=== PATIENT | female | born 1955 | race African-American/Black ===

== ENCOUNTER 2020-01-20 06:02 | Inpatient (IN) ==
[~2020-01-20 06:02] MED LIST: ALVIMOPAN 12 MG CAPSULE ONE; cefTRIAXone 1,000 MG VIAL ONE
[2020-01-20] MEDS ORDERED: DIAZEPAM 5 MG TABLET PO ONE (06:18)
[2020-01-20] MEDS ORDERED: DIAZEPAM 5 MG TABLET ONE (06:25)
[2020-01-20] MEDS ORDERED: ALVIMOPAN 12 MG CAPSULE PO STA (06:33)
[2020-01-20] MEDS ORDERED: MANNITOL 12.5 GM/50 ML VIAL IV ONE (06:40)
[2020-01-20] MEDS: LACTATED RINGERS 1,000 ML IV SCH ×3 (06:42→11:00)
[2020-01-20] MEDS ORDERED: INDOCYANINE GREEN 25 MG VIAL IV ONE (08:43)
[2020-01-20 11:13] LABS: Apearance,Urine CLOUDY (Clear); Bacteria,Urine Occasional /HPF (Few); Bilirubin,Urine Negative (Negative); Blood, Urine Negative (Negative); Calcium Oxalate Crystals,Urine Moderate /HPF (Few); Glucose,Urine (UA) Negative (Negative); Hyaline Casts,Urine 9 /LPF (0-3); Ketones,Urine Negative (Negative); Mucus,Urine Occasional /LPF (Occasional); Nitrite,Urine Negative (Negative); Protein,Urine Negative; RBC,Urine 1 /HPF (0-4); Squamous Epithelial Cell,Urine Occasional /HPF (0-10); Urine Color Yellow (Yellow); Urine Specific Gravity 1.015 (1.001-1.035); Urine Urobilinogen < 2.0 EU/DL (0.2-1.0); WBC,Urine 1 /HPF (0-6)
[2020-01-20] MEDS ORDERED: GLUCAGON 1 MG VIAL IM PRN (11:15)
[2020-01-20] MEDS ORDERED: NALOXONE 0.4 MG/ML VIAL IV PRN (11:15)
[2020-01-20] MEDS ORDERED: diphenhydrAMINE 50 MG/1 ML VIAL IV PRN (11:15)
[2020-01-20] MEDS ORDERED: ONDANSETRON 4 MG/2 ML VIAL IV PRN (11:15)
[2020-01-20] MEDS ORDERED: DEXTROSE 50% 25 GM/50 ML VIAL IV PRN (11:15)
[2020-01-20] MEDS ORDERED: HYDROmorphone PCA 30 MG/30 ML SYRINGE IV SCH (11:30)
[2020-01-20] MEDS ORDERED: propofoL 200 MG/20 ML VIAL IV ONE (11:51)
[2020-01-20] MEDS ORDERED: LIDOCAINE 2% 5 ML VIAL ONE (11:51)
[2020-01-20] MEDS ORDERED: MIDAZOLAM 2 MG/2 ML VIAL ONE (11:52)
[2020-01-20] MEDS ORDERED: fentaNYL 100 MCG/2 ML VIAL ONE (11:52)
[2020-01-20] MEDS ORDERED: HYDROmorphone 2 MG/1 ML VIAL ONE (11:53)
[2020-01-20] MEDS ORDERED: PHENYLEPHRINE 1 MG/10 ML SYRINGE IV ONE (11:53)
[2020-01-20] MEDS ORDERED: PHENYLEPHRINE 10 MG/1 ML VIAL IV ONE (11:53)
[2020-01-20] MEDS ORDERED: ROCURONIUM 100 MG/10 ML VIAL IV ONE (11:53)
[2020-01-20] MEDS ORDERED: ONDANSETRON 4 MG/2 ML VIAL ONE (11:55)
[2020-01-20] MEDS ORDERED: GLYCOPYRROLATE 0.4 MG/2 ML VIAL ONE (11:55)
[2020-01-20] MEDS ORDERED: LACTATED RINGERS 2,000 ML IV ONE (11:55)
[2020-01-20] MEDS ORDERED: SEVOFLURANE 1 UNIT/15 MINUTE INH ONE (11:55)
[2020-01-20] MEDS ORDERED: NEOSTIGMINE 10 MG/10 ML VIAL ONE (11:55)
[2020-01-20] MEDS ORDERED: ePHEDrine 50 MG/ML AMP ONE (11:55)
[2020-01-20] MEDS ORDERED: SODIUM CHLORIDE 0.9% 200 ML IV ONE (11:55)
[2020-01-20] MEDS ORDERED: HYDROmorphone PCA 30 MG/30 ML SYRINGE IV ONE (11:58)
[2020-01-20] MEDS: SODIUM CHLORIDE 0.9% 1,000 ML IV SCH (13:00)
[2020-01-20] MEDS ORDERED: LIDOCAINE 5% PATCH TRANSDERM PRN (17:32)
[2020-01-20] MEDS ORDERED: BUDESONIDE/FORMOTEROL 160-4.5 INHALER 6 GM INH PRN (17:32)
[2020-01-20] MEDS ORDERED: ALBUTEROL/IPRATROPIUM 3 ML NEB RESP TX PRN (17:32)
[2020-01-20] MEDS ORDERED: FUROSEMIDE 20 MG TABLET PO PRN (17:32)
[2020-01-20] MEDS ORDERED: CYCLOBENZAPRINE 10 MG TABLET PO PRN (17:32)
[2020-01-20] MEDS: carvediloL 25 MG TABLET PO SCH (21:33)
[2020-01-20] MEDS: GABAPENTIN 600 MG TABLET PO SCH (21:34)
[2020-01-20] MEDS: ALVIMOPAN 12 MG CAPSULE PO SCH (21:35)
[2020-01-20] MEDS: METOCLOPRAMIDE 5 MG TABLET PO SCH (21:36)
[2020-01-21] MEDS: SODIUM CHLORIDE 0.9% 1,000 ML IV SCH (05:01)
[2020-01-21 05:26] LABS: Basophils % 0.3 % (0.0-0.8); Eosinophils # 0.2 10*3/uL (0.0-0.87); Eosinophils % 1.7 % (0.00-10.9); Hemoglobin 10.5 GM/DL (12.0-16.0); Immature Granulocytes % 0.4 %; Immature Granulocytes Absolute 0.04 #; Lymphocytes # 2.7 10*3/uL (1.4-4.0); Lymphocytes % 26.4 % (21.3-54.2); Mean Corpuscular HGB Conc 31.8 GM/DL (32-36); Mean Corpuscular Volume 97.1 FL (87-102); Mean Platelet Volume 9.2 FL (9.6-12.0); Monocytes % 8.3 % (1.7-12.7); Neutrophils % 62.9 % (38.7-73.9); Platelet Count 188 T/CUMM (130-400); Red Cell Distribution Width 13.6 % (9.3-17.3); White Blood Count 10.3 T/CUMM (4-12)
[2020-01-21] MEDS: LACTATED RINGERS 1,000 ML IV SCH (05:35)
[2020-01-21 06:06] LABS: Hypochromasia Slight; Microcytosis Slight; Ovalocytes Slight; Platelet Estimate Adequate
[2020-01-21 06:10] LABS: Calcium 8.3 MG/DL (8.5-10.1)
[2020-01-21] MEDS: MULTIVITAMIN (CENTRUM) TABLET PO SCH (08:28)
[2020-01-21] MEDS: carvediloL 25 MG TABLET PO SCH ×2 (08:28→21:44)
[2020-01-21] MEDS: GABAPENTIN 600 MG TABLET PO SCH ×4 (08:29→21:44)
[2020-01-21] MEDS: ALVIMOPAN 12 MG CAPSULE PO SCH ×2 (08:29→21:45)
[2020-01-21] MEDS: LOSARTAN 50 MG TABLET PO SCH (08:30)
[2020-01-21] MEDS: allopurinoL 300 MG TABLET PO SCH (08:30)
[2020-01-21] MEDS: METOCLOPRAMIDE 5 MG TABLET PO SCH ×4 (08:31→21:44)
[2020-01-21] MEDS: CHOLECALCIFEROL 5,000 UNIT TABLET PO SCH (08:32)
[2020-01-21] MEDS ORDERED: SIMVASTATIN 20 MG TABLET PO SCH (09:00)
[2020-01-21] MEDS ORDERED: traMADol 50 MG TABLET PO PRN (09:01)
[2020-01-21] MEDS: BENZONATATE 100 MG CAPSULE PO PRN ×2 (12:48→21:44)
[2020-01-22] MEDS: GABAPENTIN 600 MG TABLET PO SCH (08:38)
[2020-01-22] MEDS: ALVIMOPAN 12 MG CAPSULE PO SCH (08:38)
[2020-01-22] MEDS: MULTIVITAMIN (CENTRUM) TABLET PO SCH (08:38)
[2020-01-22] MEDS: CHOLECALCIFEROL 5,000 UNIT TABLET PO SCH (08:38)
[2020-01-22] MEDS: LOSARTAN 50 MG TABLET PO SCH (08:38)
[2020-01-22] MEDS: allopurinoL 300 MG TABLET PO SCH (08:39)
[2020-01-22] MEDS: carvediloL 25 MG TABLET PO SCH (08:39)
[2020-01-22] MEDS: METOCLOPRAMIDE 5 MG TABLET PO SCH (10:11)
[2020-01-22 10:23] VITALS: BP 130/68
[2020-01-22] MEDS ORDERED: SIMVASTATIN 20 MG TABLET PO SCH (21:00)
[2020-01-27] MEDS ORDERED: Semaglutide [Ozempic] 1 MG SUBCUT SCH (09:00)
[2020-01-27] MEDS ORDERED: NON-FORMULARY MEDICATION (Semaglutide [Ozempic] 0.5 MG) SUBCUT SCH (09:00)
== END 2020-01-22 12:07 | disposition home or self-care (01) | DRG 658 ==
LOC: N.OR 06:02 → N.SDSINP 06:03 → N.5E 12:48
PROVIDERS: ADMIT Urology; ATTEND Urology

== ENCOUNTER 2020-01-24 11:42 | Observation (INO) ==
[2020-01-24 12:36] LABS: Basophils % 0.5 % (0.0-0.8); Eosinophils # 0.3 10*3/uL (0.0-0.87); Eosinophils % 3.5 % (0.00-10.9); Hematocrit 31.7 VOL% (35.7-47.0); Immature Granulocytes % 0.4 %; Immature Granulocytes Absolute 0.03 #; Lymphocytes # 2.8 10*3/uL (1.4-4.0); Lymphocytes % 36.6 % (21.3-54.2); Mean Corpuscular HGB Conc 31.5 GM/DL (32-36); Mean Corpuscular Volume 98.4 FL (87-102); Monocytes % 8.2 % (1.7-12.7); Neutrophils % 50.8 % (38.7-73.9); Platelet Count 218 T/CUMM (130-400); Red Blood Count 3.22 MC/CUMM (3.8-5.5); Red Cell Distribution Width 13.2 % (9.3-17.3); White Blood Count 7.7 T/CUMM (4-12)
[2020-01-24 12:38] LABS: Apearance,Urine CLEAR (Clear); Bilirubin,Urine Negative (Negative); Blood, Urine Small mg/dL (Negative); Glucose,Urine (UA) Negative (Negative); Ketones,Urine Negative (Negative); Mucus,Urine Occasional /LPF (Occasional); Nitrite,Urine Negative (Negative); Protein,Urine Negative; RBC,Urine 5 /HPF (0-4); Squamous Epithelial Cell,Urine Occasional /HPF (0-10); Urine Color Yellow (Yellow); Urine Specific Gravity 1.014 (1.001-1.035); Urine Urobilinogen < 2.0 EU/DL (0.2-1.0); WBC,Urine 9 /HPF (0-6)
[2020-01-24 12:45] LABS: INR 0.9; PT Patient Result 9.6 SECS (9.6-12.2); Partial Thromboplastin Time 26.8 SECS (20.8-36.0)
[2020-01-24 12:50] LABS: Alanine Aminotransferase 39 U/L (13-56); Albumin 3.5 G/DL (3.4-5.0); Alkaline Phosphatase 62 U/L (45-117); Aspartate Amino Transferase 21 U/L (0-37); Bilirubin,Total < 0.39 MG/DL (0.2-1.0); Blood Urea Nitrogen 19 MG/DL (7-18); Calcium 9.5 MG/DL (8.5-10.1); Estimated Glom Filtration Rate 43 ML/MIN; Glucose 60 MG/DL (74-106); Osmolality,Calculated 276.5 MOS/KG (273-304); Total Protein 6.9 G/DL (6.4-8.3); Troponin I < 0.015 NG/ML (0.00-0.045)
[2020-01-24] MEDS ORDERED: DEXTROSE 50% 25 GM/50 ML SYRINGE IV ONE (13:30)
[2020-01-24] MEDS ORDERED: DEXTROSE 50% 25 GM/50 ML VIAL IV STA (13:30)
[2020-01-24] MEDS ORDERED: HYDROcodone/CHLORPHENIRAMINE ER 5 ML UDCUP PO PRN (13:33)
[2020-01-24] MEDS ORDERED: PROMETHAZINE 25 MG/1 ML VIAL IM PRN (13:33)
[2020-01-24] MEDS ORDERED: MORPHINE 4 MG/1 ML VIAL IV PRN (13:33)
[2020-01-24] MEDS ORDERED: ONDANSETRON 4 MG/2 ML VIAL IV PRN (13:33)
[2020-01-24] MEDS ORDERED: DEXTROSE 50% 25 GM/50 ML VIAL IV PRN (13:48)
[2020-01-24] MEDS ORDERED: GLUCAGON 1 MG VIAL IM PRN (13:48)
[2020-01-24] MEDS ORDERED: hydrALAZINE 20 MG/1 ML VIAL IV PRN (13:51)
[2020-01-24] MEDS ORDERED: BUDESONIDE/FORMOTEROL 160-4.5 INHALER 6 GM INH PRN (13:51)
[2020-01-24] MEDS ORDERED: FUROSEMIDE 20 MG TABLET PO PRN (13:51)
[2020-01-24] MEDS ORDERED: ALBUTEROL/IPRATROPIUM 3 ML NEB RESP TX PRN (13:51)
[2020-01-24] MEDS ORDERED: LIDOCAINE 5% PATCH TRANSDERM PRN (13:51)
[2020-01-24] MEDS ORDERED: CYCLOBENZAPRINE 10 MG TABLET PO PRN (13:51)
[2020-01-24] MEDS ORDERED: INSULIN REGULAR 100 UNIT/ML SUBCUT SCH (16:30)
[2020-01-24] MEDS ORDERED: metFORMIN 500 MG TABLET PO SCH (17:00)
[2020-01-24] MEDS: GABAPENTIN 600 MG TABLET PO SCH ×2 (17:34→20:27)
[2020-01-24] MEDS: PANTOPRAZOLE 40 MG TABLET PO SCH (17:34)
[2020-01-24] MEDS: INSULIN REGULAR 100 UNIT/ML SUBCUT SCH (17:34)
[2020-01-24] MEDS: ALBUTEROL/IPRATROPIUM 3 ML NEB RESP TX SCH (19:26)
[2020-01-24] MEDS: carvediloL 25 MG TABLET PO SCH (20:25)
[2020-01-24] MEDS: SULFAMETHOX/TRIMETHOPRIM 800-160 MG TABLET PO SCH (20:26)
[2020-01-24] MEDS ORDERED: LOSARTAN 50 MG TABLET PO SCH (21:00)
[2020-01-24] MEDS ORDERED: allopurinoL 300 MG TABLET PO SCH (21:00)
[2020-01-24] MEDS ORDERED: MULTIVITAMIN (CENTRUM) TABLET PO SCH (21:00)
[2020-01-24] MEDS ORDERED: CHOLECALCIFEROL 5,000 UNIT TABLET PO SCH (21:00)
[2020-01-24] MEDS ORDERED: SIMVASTATIN 20 MG TABLET PO SCH (21:00)
[2020-01-25] MEDS: ALBUTEROL/IPRATROPIUM 3 ML NEB RESP TX SCH ×2 (00:16→08:30)
[2020-01-25] MEDS: INSULIN REGULAR 100 UNIT/ML SUBCUT SCH ×3 (00:17→12:48)
[2020-01-25 05:51] LABS: Basophils % 0.5 % (0.0-0.8); Eosinophils # 0.3 10*3/uL (0.0-0.87); Eosinophils % 4.4 % (0.00-10.9); Hematocrit 30.3 VOL% (35.7-47.0); Hemoglobin 9.5 GM/DL (12.0-16.0); Immature Granulocytes % 0.5 %; Immature Granulocytes Absolute 0.04 #; Lymphocytes # 3.6 10*3/uL (1.4-4.0); Lymphocytes % 45.8 % (21.3-54.2); Mean Corpuscular HGB Conc 31.4 GM/DL (32-36); Mean Corpuscular Volume 98.7 FL (87-102); Mean Platelet Volume 9.1 FL (9.6-12.0); Monocytes % 8.6 % (1.7-12.7); Neutrophils % 40.2 % (38.7-73.9); Platelet Count 194 T/CUMM (130-400); Red Blood Count 3.07 MC/CUMM (3.8-5.5); Red Cell Distribution Width 13.2 % (9.3-17.3); White Blood Count 7.8 T/CUMM (4-12)
[2020-01-25 06:05] LABS: Osmolality,Calculated 282.5 MOS/KG (273-304)
[2020-01-25 06:08] LABS: VLDL CHOLESTEROL 48.8 MG/DL
[2020-01-25] MEDS: SULFAMETHOX/TRIMETHOPRIM 800-160 MG TABLET PO SCH (08:58)
[2020-01-25] MEDS: GABAPENTIN 600 MG TABLET PO SCH ×2 (08:58→13:15)
[2020-01-25] MEDS: carvediloL 25 MG TABLET PO SCH (08:58)
[2020-01-25] MEDS: PANTOPRAZOLE 40 MG TABLET PO SCH (08:58)
[2020-01-25 12:33] VITALS: BP 135/65
[2020-01-27] MEDS ORDERED: SEMAGLUTIDE 0.5 MG SUBCUT SCH (13:51)
== END 2020-01-25 13:40 | disposition home or self-care (01) ==
LOC: N.EDINP 11:42 → N.ED 11:42 → N.5E 15:10
PROVIDERS: ADMIT Family Medicine; ATTEND Family Medicine